=== PATIENT | male | born 1940 | race Caucasian/White ===

== ENCOUNTER 2017-09-02 11:12 | Day surgery (SDC) | payer OTHER, MEDICARE ==
[~2017-09-02 11:12] MED LIST: VERSED ONE
[2017-09-02] MEDS ORDERED: NS 500 ML IV 500 ML IV ONE (11:34)
[2017-09-02] MEDS ORDERED: TETRACAINE 0.5% OPHTH 1 DOSE AFFEYE ONE ×2 (11:35→13:42)
[2017-09-02] MEDS ORDERED: VIGAMOX 0.5% OPHTH 1 DOSE AFFEYE ONE ×5 (11:36→14:10)
[2017-09-02] MEDS ORDERED: PROLENSA OPHTH 1 DOSE AFFEYE ONE (11:48)
[2017-09-02] MEDS ORDERED: ALPHAGAN-P OPHTH 1 DOSE AFFEYE ONE (11:49)
[2017-09-02] MEDS ORDERED: MYDRIACIL OPHTH 1 DOSE AFFEYE ONE ×6 (11:50→11:55)
[2017-09-02] MEDS ORDERED: CYCLOGYL 1% OPHTH 1 DOSE OP ONE ×6 (11:50→11:55)
[2017-09-02] MEDS ORDERED: AK-DILATE 2.5% OPHTH 1 DOSE OP ONE ×6 (11:50→11:55)
[2017-09-02] MEDS ORDERED: BETADINE OPHTH SOLN 5% EACHEYE ONE (13:42)
[2017-09-02] MEDS ORDERED: XYLOCAINE-MPF 1% IJ ONE (13:55)
[2017-09-02] MEDS ORDERED: DUOVISC IO ONE (13:55)
[2017-09-02] MEDS ORDERED: BSS OPHTH (PLAIN) 500 ML with VANCOMYCIN HCL 500 MG VIAL 25 MG, ADRENALINE CHL INJ 1 MG IR ONE ×3 (13:55)
[2017-09-02] MEDS ORDERED: ADRENALINE CHL INJ IJ ONE (13:55)
[2017-09-02 16:06] VITALS: BP 145/76
== END 2017-09-02 14:31 | disposition home or self-care (01) ==
LOC: SURG1 11:12
PROVIDERS: ATTEND Ophthalmology
PROC: 08DK3ZZ Extraction of Left Lens, Percutaneous Approach (ICD-10-PCS; principal; 2017-09-02 16:15)
PROC: 08RK3JZ Replacement of Left Lens with Synthetic Substitute, Percutaneous Approach (ICD-10-PCS; principal; 2017-09-02 16:15)
DX: H25.12 Age-related nuclear cataract, left eye (principal)
CPT/HCPCS: 99100; A4217; J0170; J2250; J3370

== ENCOUNTER 2017-09-09 07:23 | Day surgery (SDC) | payer OTHER, MEDICARE ==
[~2017-09-09 07:23] MED LIST changes: +NS 1000 ML 1,000 ML ONE; -VERSED ONE
[2017-09-09] MEDS ORDERED: TETRACAINE 0.5% OPHTH 1 DOSE AFFEYE ONE ×2 (08:19→10:55)
[2017-09-09] MEDS ORDERED: VIGAMOX 0.5% OPHTH 1 DOSE AFFEYE ONE ×5 (08:20→11:23)
[2017-09-09] MEDS ORDERED: PROLENSA OPHTH 1 DOSE AFFEYE ONE (08:31)
[2017-09-09] MEDS ORDERED: ALPHAGAN-P OPHTH 1 DOSE AFFEYE ONE (08:32)
[2017-09-09] MEDS ORDERED: CYCLOGYL 1% OPHTH 1 DOSE OP ONE ×3 (08:33→08:39)
[2017-09-09] MEDS ORDERED: AK-DILATE 2.5% OPHTH 1 DOSE OP ONE ×3 (08:34→08:40)
[2017-09-09] MEDS ORDERED: MYDRIACIL OPHTH 1 DOSE AFFEYE ONE ×3 (08:35→08:41)
[2017-09-09] MEDS ORDERED: BETADINE OPHTH SOLN 5% EACHEYE ONE (10:55)
[2017-09-09] MEDS ORDERED: DUOVISC IO ONE ×2 (11:00→11:12)
[2017-09-09] MEDS ORDERED: XYLOCAINE-MPF 1% IJ ONE ×2 (11:00→11:12)
[2017-09-09] MEDS ORDERED: ADRENALINE CHL INJ IJ ONE ×2 (11:00→11:12)
[2017-09-09] MEDS ORDERED: BSS OPHTH (PLAIN) 500 ML with VANCOMYCIN HCL 500 MG VIAL 25 MG, ADRENALINE CHL INJ 1 MG IR ONE ×6 (11:02)
[2017-09-09] MEDS ORDERED: VERSED ONE (13:55)
[2017-09-09 16:26] VITALS: BP 151/69
== END 2017-09-09 11:50 | disposition home or self-care (01) ==
LOC: SURG1 07:23
PROVIDERS: ATTEND Ophthalmology
PROC: 08DJ3ZZ Extraction of Right Lens, Percutaneous Approach (ICD-10-PCS; principal; 2017-09-09 11:00)
PROC: 08RJ3JZ Replacement of Right Lens with Synthetic Substitute, Percutaneous Approach (ICD-10-PCS; principal; 2017-09-09 11:00)
DX: H25.11 Age-related nuclear cataract, right eye (principal)
CPT/HCPCS: 99100; A4217; J0170; J2250; J3370